=== PATIENT | male | born 1985 | race Caucasian/White ===

== ENCOUNTER 2017-11-10 16:34 | Emergency (ER) | payer SELFPAY ==
[2017-11-10 16:49] VITALS: RESP 16
--- NOTE | 2017-11-10 18:45 | EDPHY ---
HPI/HX/ROS/PE/MDM Narrative: CHIEF COMPLAINT: Left-sided numbness and paresthesias HISTORY OF PRESENT ILLNESS: This patient is a healthy 32 y/o male who presents following an episode of left- sided numbness and paresthesias, now resolved. He was rock climbing earlier today, and felt well. Around 3:45pm, he suddenly developed left sided numbness and paresthesias while sitting in the lobby waiting for his partner. This began with tongue tingling, and then the sensation moved up and down left side of body. This lasted about 5-8 minutes. He called his partner to come help him. Called mother who is former nurse, who recommended he present to the ED for evaluation. Now, these symptoms have resolved but his left side continues to feel weak and heavy. He endorses some blurred vision on the left, but no diplopia. He endorses a minor headache. The patient underwent chiropractic manipulation including his neck two weeks ago , which he gets frequently to correct a spinal abnormality. He did not have a headache or any similar symptoms to today at that time. No personal or family history of migraines. No history of head or neck trauma. He does have history of anxiety in the past, but denies current anxiety or history of hyperventilation with paresthesias. He denies known family history of autoimmune disorders. He states he had the flu 10/20/17, and took Tamiflu. He feels recovered now and is afebrile. No fever, chills, chest pain, shortness of breath, palpitations, vomiting, diarrhea, urinary complaints, lightheadedness. REVIEW OF SYSTEMS: Aside from elements discussed in the HPI, a comprehensive 10-point review of systems was reviewed and is negative. PAST MEDICAL HISTORY: Denies SOCIAL HISTORY: Works as a [employer]. Nonsmoker. Social alcohol use. Marijuana use. No illicit drug use. VITAL SIGNS: Reviewed by me GENERAL: Well-developed, well-nourished, resting comfortably in no respiratory distress. HEENT: Atraumatic. Eyes: No icterus, no injection. PERRL, EOMI. Mouth: moist mucous membranes. No erythema or lesions. Neck: supple with no adenopathy. No bruits. LUNGS: Clear to auscultation bilaterally, no wheezes, rhonchi or rales. CARDIAC: Regular rate and rhythm, no rubs, murmurs or gallops. ABDOMEN: Soft, nontender, nondistended, bowel sounds normal. BACK: No CVA tenderness. EXTREMITIES: No trauma. No edema. Range of motion is normal throughout. NEURO: Alert and oriented. Cranial nerves 2-12 are intact. Motor strength: 4+ over 5 left hand police manager strength, 4+ over 5 deltoid and biceps strength on the left. Slight upper extremity drift on the left side. 4+ over 5 motor strength in the left lower extremity. Difficulty with [id number] on left. Normal [id number]. SKIN: Warm and dry, no rash. PSYCHIATRIC: Normal mentation, no agitation. Portions of this note were transcribed by a medical videographer. I personally performed a history, physical exam, medical decision making, and confirmed accuracy of information the transcribed note. ED Course: 18:55 Plan to call stroke alert. Patient is presenting 3 hr and 10 min after onset of symptoms. 32 year old male presents with left-sided weakness and an episode of left-sided numbness and paresthesias, now resolved. On exam, he has residual left-sided weakness including reduced police manager strength and difficulty with [id number] on the left. Symptoms began around 3:45 this afternoon, three hours prior to my examination. Called stroke alert. Plan for CT head, EKG, chest x-ray, labs including CBC, chemistries, coag. 19:[address] Stoner, neurologist at [facility]. He will consult. 19:[address] Culp, radiologist. CT head negative for acute processes. Plan for CTA head and neck for further evaluation. Laboratory studies largely unremarkable. Elevated WBC around 12,000. 20:[address] Shannon radiologist. CTA head and neck negative. 21:[address] Stoner, neurologist. He is comfortable with discharge home for this patient if MRI brain is negative. 22:[address] Shannon. MRI brain negative for acute processes. 22:30 Reassessed patient. Discussed MRI results. Plan to discharge home in good condition with referral to neurology. Follow up and return precautions discussed. He is comfortable with this plan. MDM: Differential diagnoses the patient's presenting complaints was considered including but not limited to intracranial injury, TIA, ischemic cerebrovascular accident, hemorrhagic cerebrovascular accident, hypoglycemia, complex migraine , metastases, tumor, seizure, or electrolyte abnormality - Data Points Imaging Results: Imaging Impressions Chest X-Ray 11/10/17 18:56 Impression: Negative frontal chest radiograph. Head CT 11/10/17 18:56 Impression: 1. No acute intracranial findings. If symptoms persist and clinical suspicion warrants, consider MRI. 2. Possible right maxillary sinusitis. Findings discussed with pippa Baker, Linda Begum MD 11/10/2017 at 1912. Head CTA 11/10/17 19:28 Impression: Negative CT angiography of the neck, with no arterial occlusive disease identified. CT Angiography of the Head, With Attention to the [place] Reason for Examination: Left-sided numbness and weakness; evaluate for arterial occlusive disease. Technique: A spiral acquisition was performed from the base of the brain to the vertex during rapid intravenous administration of 85 mL of Isovue-370. This contrast volume was utilized for evaluation of the neck and head. Axial images are obtained at 0.6-mm thickness, and the examination is reviewed on the workstation in multiple window and level settings. Sagittal and coronal reformats are performed and three-dimensional reformations are performed by the radiologist on the workstation. Dose reduction techniques were utilized. Findings: There is excellent arterial opacification. The great vessels at the base of the brain are normal in appearance. The anterior and middle cerebral arteries appear normal. The [place] is intact, with both anterior and posterior communicating arteries identified. The basilar artery as well as posterior cerebral arteries are normal. No regions of stenosis are identified. No hemorrhages are seen, and no vascular malformations are identified. No areas of abnormal perfusion are identified, and there are no findings to suggest cortical ischemia. Impression: Normal CT angiography of the head, with attention to the great vessels of the [place]. Results called and discussed with Linda Begum M.D., on November 10, 2017 at 2030. Note: All stenoses are calculated using NASCET Criteria. Neck CTA 11/10/17 19:28 Impression: Negative CT angiography of the neck, with no arterial occlusive disease identified. CT Angiography of the Head, With Attention to the [place] Reason for Examination: Left-sided numbness and weakness; evaluate for arterial occlusive disease. Technique: A spiral acquisition was performed from the base of the brain to the vertex during rapid intravenous administration of 85 mL of Isovue-370. This contrast volume was utilized for evaluation of the neck and head. Axial images are obtained at 0.6-mm thickness, and the examination is reviewed on the workstation in multiple window and level settings. Sagittal and coronal reformats are performed and three-dimensional reformations are performed by the radiologist on the workstation. Dose reduction techniques were utilized. Findings: There is excellent arterial opacification. The great vessels at the base of the brain are normal in appearance. The anterior and middle cerebral arteries appear normal. The [place] is intact, with both anterior and posterior communicating arteries identified. The basilar artery as well as posterior cerebral arteries are normal. No regions of stenosis are identified. No hemorrhages are seen, and no vascular malformations are identified. No areas of abnormal perfusion are identified, and there are no findings to suggest cortical ischemia. Impression: Normal CT angiography of the head, with attention to the great vessels of the [place]. Results called and discussed with Linda Begum M.D., on November 10, 2017 at 2030. Note: All stenoses are calculated using NASCET Criteria. Brain MRI 11/10/17 21:08 Impression: 1. Normal MRI of the brain without contrast. Specifically no evidence for acute ischemia. 2. Acute right maxillary sinusitis. Results called and discussed with Linda Begum MD on 11/10/2017 at 22:26 Imaging: Discussed imaging studies w/ call center manager Radiologist Laboratory Results: Laboratory Results 11/10/17 19:05 11/10/17 19:05 11/10/17 11/10/17 11/10/17 19:05 19:05 19:05 WBC 12.79 10^3/uL H 10^3/uL (3.80-9.50) RBC 4.38 10^6/uL L 10^6/uL (4.40-6.38) Hgb 14.7 g/dL g/dL (13.7-17.5) POC Hgb Hct 40.1 % % (40.0-51.0) POC Hct MCV 91.6 fL fL (81.5-99.8) MCH 33.6 pg pg (27.9-34.1) MCHC 36.7 g/dL g/dL (32.4-36.7) RDW 11.9 % % (11.5-15.2) Plt Count 279 10^3/uL 10^3/uL (150-400) MPV 9.5 fL fL (8.7-11.7) Neut % (Auto) 64.4 % % (39.3-74.2) Lymph % (Auto) 28.5 % % (15.0-45.0) Dillon % (Auto) 5.7 % % (4.5-13.0) Eos % (Auto) 0.7 % % (0.6-7.6) Baso % (Auto) 0.4 % % (0.3-1.7) Nucleat RBC Rel Count 0.0 % % (0.0-0.2) Absolute Neuts (auto) 8.24 10^3/uL H 10^3/uL (1.70-6.50) Absolute Lymphs (auto) 3.64 10^3/uL H 10^3/uL (1.00-3.00) Absolute Monos (auto) 0.73 10^3/uL 10^3/uL (0.30-0.80) Absolute Eos (auto) 0.09 10^3/uL 10^3/uL (0.03-0.40) Absolute Basos (auto) 0.05 10^3/uL 10^3/uL (0.02-0.10) Absolute Nucleated RBC 0.00 10^3/uL 10^3/uL (0-0.01) Immature Gran % 0.3 % % (0.0-1.1) Immature Gran # 0.04 10^3/uL 10^3/uL (0.00-0.10) PT 13.8 SEC SEC (12.0-15.0) INR 1.04 (0.83-1.16) POC Sodium Sodium 141 mEq/L mEq/L (135-145) POC Potassium Potassium 3.5 mEq/L mEq/L (3.5-5.2) POC Chloride Chloride 106 mEq/L mEq/L (97-110) Carbon Dioxide 21 mEq/l L mEq/l (22-31) Anion Gap 14 mEq/L mEq/L (8-16) POC BUN BUN 14 mg/dL mg/dL (7-23) Creatinine 1.0 mg/dL mg/dL (0.7-1.3) POC Creatinine Estimated GFR > 60 Glucose 79 mg/dL mg/dL (70-100) POC Glucose Calcium 9.7 mg/dL mg/dL (8.5-10.4) 11/10/17 19:02 WBC RBC Hgb POC Hgb 14.3 gm/dL gm/dL (13.7-17.5) Hct POC Hct 42 % % (40-51) MCV MCH MCHC RDW Plt Count MPV Neut % (Auto) Lymph % (Auto) Dillon % (Auto) Eos % (Auto) Baso % (Auto) Nucleat RBC Rel Count Absolute Neuts (auto) Absolute Lymphs (auto) Absolute Monos (auto) Absolute Eos (auto) Absolute Basos (auto) Absolute Nucleated RBC Immature Gran % Immature Gran # PT INR POC Sodium 142 mEq/L mEq/L (135-145) Sodium POC Potassium 3.1 mEq/L L mEq/L (3.3-5.0) Potassium POC Chloride 105 mEq/L mEq/L (97-110) Chloride Carbon Dioxide Anion Gap POC BUN 15 mg/dL mg/dL (7-23) BUN Creatinine POC Creatinine 1.1 mg/dL mg/dL (0.7-1.3) Estimated GFR Glucose POC Glucose 78 mg/dL mg/dL (70-100) Calcium Point of Care Test Results: 11/10/17 19:02 POC Sodium 142 POC Potassium 3.1 L POC Chloride 105 POC BUN 15 POC Creatinine 1.1 POC Glucose 78 General Time Seen by Provider: 11/10/17 18:31 Initial Vital Signs: Initial Vital Signs Temperature (C) 36.6 C 11/10/17 16:40 Heart Rate 73 11/10/17 16:40 Respiratory Rate 16 11/10/17 16:40 Blood Pressure 124/78 H 11/10/17 16:40 O2 Sat (%) 97 11/10/17 16:40 O2 Delivery Mode Room Air Allergies/Adverse Reactions: No Known Allergies Allergy (Unverified 11/10/17 16:46) Home Medications: Medication Instructions Recorded NK [No Known Home Meds] 11/10/17 Departure - Departure Disposition: Home, Routine, Self-Care Clinical Impression: Left-sided weakness, Paresthesia of left upper and lower extremity Transient ischemic attack, acute Qualifiers: Transient cerebral ischemia type: other Qualified Code(s): G45.8 - Other transient cerebral ischemic attacks and related syndromes Condition: Good Instructions: Transient Ischemic Attack (ED), Paresthesia (ED), Weakness (ED) Additional Instructions: 1. Follow up with a neurologist this week for further evaluation. We have referred you to our neurologist provider relations specialist. 2. Return to the emergency department for severe headache, confusion, recurring numbness, weakness, or tingling in your extremities, difficulty with speech, facial droop, vomiting, vision changes, fever, or other worsening of condition. Referrals: [facility] [Outside] - As per Instructions Anthony Mantilla MD [Medical Doctor] - As per Instructions Report Scribed for: Linda Begum Report Scribed by: Jessica Anderson Date of Report: 11/10/17 Time of Report: 22:37
--- NOTE | 2017-11-10 19:12 | CPEKG ---
Heart Rate: 64 RR Interval: 938 P-R Interval: 144 QRSD Interval: 84 QT Interval: 364 QTC Interval: 376 P [place]: 69 QRS [place]: 83 T Wave [place]: 63 EKG Severity - ABNORMAL ECG - EKG Impression: SINUS RHYTHM EKG Impression: CONSIDER ANTEROSEPTAL INFARCT Electronically Signed By: Jose Elias Johnson 10-Nov-2017 19:44:02
[2017-11-10 19:18] LABS: PLATELET COUNT 279 10^3/uL (150-400)
--- NOTE | 2017-11-10 19:23 | PDCONSULT ---
Measurement Department Chief Clerk Note: [facility] Note Demographics Consult Type Acute Stroke First Name Jai Last Name Hi Date of 1985 Age: 32 Gender Male Time of initial page ([place] ): 11/10/2017 19:03 Time of return call ([place] ): 11/10/2017 19:03 Time Ready to Initiate Telemed Consult ([place] Time): 11/10/2017 19:03 HPI Additional History (Free Text): 32yo man who had 10minute episode of left sided numbness. He states this started at 345PM, and started in his hand and then went to his whole left side of the body. This then improved, but he feels that he still has fatigue of the left side of his body. He has some tiredness of the left side PMH-- Past Medical History: Denies [facility] Past Surgical History appendectomy Social History: non-smoker, occasional alcohol, marijuana Exam Vitals: vital signs reviewed SBP: 122 DBP: 86 NIHSS Time ([place] ): 11/10/2017 19:20 LOC 1a: 0 = Alert; keenly responsive LOC 1b: 0 = Answers both questions correctly LOC Commands: 0 = Performs both tasks correctly Best Gaze: 0 = Normal Visual: 0 = No visual loss Facial Palsy 0 = Normal symmetrical movements Motor Arm L: 0 = No drift; limb holds 90 (or 45) degrees for full 10 seconds Motor Arm R: 0 = No drift; limb holds 90 (or 45) degrees for full 10 seconds Motor Leg L: 0 = No drift; leg holds 30-degree position for full 5 seconds Motor Leg R: 0 = No drift; leg holds 30-degree position for full 5 seconds Limb Ataxia 0 = Absent Sensory: 0 = Normal; no sensory loss Best Language: 0 = No aphasia; normal Dysarthria: 0 = Normal Extinction + Inattention: 0 = No abnormality NIHSS: [address]: no bleed Assessment Assessment: Acute Ischemic Stroke, vs TIA Plan Lytic/Intervention: NOT IV or IA candidate tPA Exclusion (< 3hr window) Mild or improving symptoms Blood Pressure Managment: Labetolol Target Blood Pressure: SBP < 220 Labs Comprehensive metabolic panel, ESR, HgbA1c, Lipid Panel, UDS Imaging CTA Head and Neck STAT, Please call me back with results [place] if there are signs of occlusion or dissection, MRI brain without Diagnostic test echocardiogram with bubble Therapy/Eval NPO until cleared by swallow evaluation, PT/OT, Speech/Swallow therapy consult Medication aspirin 81mg per day VTE Prophylaxis Heparin 5000 units subcutaneously q 12 hours Other LDL goal less than 70, permissive HTN, I have discussed my recommendations with the referring provider Disposition admit
[2017-11-10 19:27] LABS: INR 1.04 (0.83-1.16); PROTIME(PATIENT) 13.8 SEC (12.0-15.0)
[2017-11-10] MEDS ORDERED: IOPAMIDOL (ISOVUE 370) 100 ML BTL IV ONE (19:41)
[2017-11-10 23:07] VITALS: BP 113/65; PULSE 73; TEMP 98.1; O2SAT 97
== END 2017-11-10 23:08 | disposition home or self-care (01) ==
DX: G45.8 Other transient cerebral ischemic attacks and related syndromes (principal)
CPT/HCPCS: 82947-QW; Q9967